=== PATIENT | male | born 1955 | race Asian ===

== ENCOUNTER 2017-11-20 10:42 | Emergency (ER) | payer OTHER ==
[~2017-11-20] VITALS: Ht 162.6 cm; Wt 70.5 kg
[2017-11-20] MEDS ORDERED: BLOOD PRESSURE PO (10:49)
[2017-11-20 13:38] VITALS: BP 125/86
== END 2017-11-20 13:39 | disposition home or self-care (01) ==
LOC: EMS 10:44
DX: S20.212A Contusion of left front wall of thorax, initial encounter (principal); I10 Essential (primary) hypertension; W18.39XA Other fall on same level, initial encounter; Y93.89 Activity, other specified; Y92.89 Other specified places as the place of occurrence of the external cause; Y99.8 Other external cause status
CPT/HCPCS: 71250; 72192; 74150; 99284